=== PATIENT | male | born 1950 | race Caucasian/White ===

== ENCOUNTER → 2018-01-09 | Outpatient (CLI) | payer BC ==
[~2018-01-09] MED LIST: ASPI81TA28 PO; B-COTAB18 PO; CALC667C4 PO; DIPH-437 PO; FLEC100T21 PO; METO50TA16 PO; MULT-506 PO; SIMV40TA2 PO
--- NOTE | 2018-01-09 12:48 | DIAGNOSTIC IMAGING REPORT ---
CHEST 2 VIEWS ROUTINE HISTORY: 67 years-old Male COUGH,WHEEZING,DYSPNEA acute cough and wheezing COMPARISON: Chest radiograph 09/07/2015 TECHNIQUE: PA and lateral views of the chest. FINDINGS: The cardiac silhouette is upper limits of normal in size. Unchanged positioning of left subclavian pacer. There is no pneumothorax, pleural effusion, focal airspace consolidation or overt pulmonary edema. The bones of the chest appear grossly intact. IMPRESSION: No acute process. The above report was generated using voice recognition software. It may contain grammatical, syntax or spelling errors. Electronically signed by: Mick Man M.D. 01/09/2018 12:46 PM Dictated Date/Time: 01/09/2018 12:45 PM
== END | disposition home or self-care (01) ==
LOC: C.RAD1850 12:36
PROVIDERS: ATTEND Physician Assistant
DX: R05 Cough (principal); R06.09 Other forms of dyspnea; R06.2 Wheezing